=== PATIENT | male | born 1990 | race Caucasian/White ===

== ENCOUNTER 2022-07-21 19:58 | Emergency (ER) | payer MEDICAID ==
[~2022-07-21] VITALS: Ht 170.2 cm; Wt 70.3 kg
--- NOTE | 2022-07-21 20:40 | NUR ---
TO ER BED 11. EMI C/O ETOH WITHDRAWAL SYMPTOMS. H/A & CHILLS X7 DAYS. PT IS ALERT AND ORIENTED. RR EVEN AND NONLABORED. CONNECTED TO MONITOR. SEIZURE PRECAUTIONS IN PLACE. AWAITING MD ORDERS.
[2022-07-21] MEDS ORDERED: IV NS 0.9% 1,000 ML BAG IV ONE (21:30)
[2022-07-21] MEDS ORDERED: IBUPROFEN 600 MG TABLET PO ONE (21:30)
[2022-07-21] MEDS ORDERED: ACETAMINOPHEN ES 500 MG TABLET PO ONE (21:30)
[2022-07-21] MEDS ORDERED: CHLORDIAZEPOXIDE HCL 25 MG CAPSULE PO ONE (21:30)
--- NOTE | 2022-07-21 21:36 | NUR ---
XRAY AT BEDSIDE
[2022-07-21] MEDS ORDERED: CHLORDIAZEPOXIDE HCL 25 MG CAPSULE ONE (21:44)
[2022-07-21] MEDS ORDERED: ACETAMINOPHEN ES 500 MG TABLET ONE (21:45)
[2022-07-21] MEDS ORDERED: IBUPROFEN 600 MG TABLET ONE (21:45)
--- NOTE | 2022-07-21 21:45 | NUR ---
IV LINE ESTABLISHED, [id number]
--- NOTE | 2022-07-21 21:50 | NUR ---
BLOOD AND CULTURES COLLECTED AND SENT TO LAB
[2022-07-21 22:04] LABS: BASOPHILS % (AUTO) 0.7 % (0.0-2.0); EOSINOPHILS % (AUTO) 0.1 % (0.0-6.0); HEMATOCRIT 39 % (39-51); HEMOGLOBIN 13.2 g/dL (13.5-17.5); LYMPHOCYTES # (AUTO) 1.1 K/uL (0.8-4.8); LYMPHOCYTES % (AUTO) 24.8 % (20.0-44.0); MEAN CORPUSCULAR HGB CONC 34 g/dl (31.0-36.0); MEAN CORPUSCULAR VOLUME 90 fL (80-96); MONOCYTES # (AUTO) 0.5 K/uL (0.1-1.30); MONOCYTES % (AUTO) 11.3 % (2.0-12.0); NEUTROPHILS # (AUTO) 2.8 K/uL (1.8-8.9); NEUTROPHILS % (AUTO) 63.1 % (43.0-81.0); PLATELET COUNT (AUTO) 106 K/uL (150-450); RED BLOOD CELL COUNT(AUTO) 4.31 MIL/uL (4.5-6.0); WHITE BLOOD COUNT (AUTO) 4.5 K/uL (4.3-11.0)
[2022-07-21 22:17] LABS: BILIRUBIN,TOTAL 0.7 mg/dL (0.2-1.0); CALCIUM, SERUM 8.5 mg/dL (8.5-10.1); CREATININE 1.1 mg/dL (0.6-1.3); POTASSIUM 3.5 mmol/L (3.5-5.1); TOTAL PROTEIN, SERUM 7.4 g/dL (6.4-8.2)
[2022-07-21 22:50] LABS: ALBUMIN 3.3 g/dL (3.4-5.0); BILIRUBIN,DIRECT 0.3 mg/dL (0.0-0.2)
[2022-07-21] MEDS ORDERED: CHLO25CA22 PO (23:12)
--- NOTE | 2022-07-21 23:21 | NUR ---
IV removed. Catheter intact and site benign. Pressure and 4x4 applied to site. No bleeding noted.
[2022-07-21 23:22] VITALS: BP 110/60
--- NOTE | 2022-07-21 23:22 | NUR ---
Patient discharged to home in stable condition. Written and verbal after care instructions given. Patient verbalizes understanding of instruction.
== END 2022-07-21 23:26 | disposition home or self-care (01) ==
LOC: ER 20:07
DX: F10.139 Alcohol abuse with withdrawal, unspecified (principal); Z79.899 Other long term (current) drug therapy; Y90.9 Presence of alcohol in blood, level not specified
CPT/HCPCS: 99285; 96360; 71045; 93005; 84145; 85025; 80048; 87040 ×2; 83605; 80076; 85730; J7030; 36415